=== PATIENT | female | born 1975 | race Caucasian/White ===

== ENCOUNTER 2017-01-31 21:52 | Emergency (ER) | payer OTHER ==
[2017-01-31] MEDS ORDERED: DIPH,PERTUS(ACELL)TETVAC-LF 0.5 ML VIAL IM ONE (22:09)
[2017-01-31] MEDS ORDERED: MORPHINE SULFATE 10 MG/ML SYRINGE IM STA (22:14)
--- NOTE | 2017-01-31 22:19 | ED ---
Wound/Laceration HPI - General Chief Complaint: Wound/Laceration Stated Complaint: hand lac with chainsaw Time Seen by Provider: 01/31/17 22:05 Source: patient, RN notes reviewed Mode of arrival: ambulatory Limitations: no limitations - History of Present Illness Initial Comments: This is a 42-year-old female presenting to the emergency Department chief complaint of right hand laceration. Patient reports she was holding wood for her friends to cut with a chain saw and they cut through the wood and cut into the palm of her hand. Patient reports she has a laceration over the palm of her thumb as well as extending in the middle finger. Patient states she does have some range of motion of the middle finger. She does have limited full extension and flexion of the right thumb. Patient reports she is right-handed. She does not know the status of her tetanus vaccination.Patient reports that she was drinking when this occured. - Related Data Home Medications Medication Instructions Recorded Confirmed Cyanocobalamin [Vitamin B-12] 500 mcg PO DAILY 01/31/17 01/31/17 Magnesium Oxide [Mag-Ox] 250 mg PO DAILY 01/31/17 01/31/17 Potassium 99 mg PO DAILY 01/31/17 01/31/17 Previous Rx's Medication Instructions Recorded Acetaminophen-Codeine 300-30mg 1 tab PO Q6H PRN #15 tablet 02/01/17 [Tylenol #3] Cephalexin [Keflex] 500 mg PO Q6HR #40 cap 02/01/17 Allergies Allergy/AdvReac Type Severity Reaction Status Date / Time ibuprofen [From Motrin] Allergy Unknown Verified 01/31/17 22:03 Childhood Penicillins Allergy Unknown Verified 01/31/17 22:30 Childhood Review of Systems ROS Statement: Those systems with pertinent positive or pertinent negative responses have been documented in the HPI. ROS Other: All systems not noted in ROS Statement are negative. Past Medical History Additional Past Medical History / Comment(s): blood clotting disordere History of Any Multi-Drug Resistant Organisms: None Reported Past Surgical History: No Surgical Hx Reported Past Psychological History: Anxiety, Depression Smoking Status: Current every day smoker Past Alcohol Use History: Occasional Past Drug Use History: None Reported General Exam - General Exam Comments Initial Comments: Intoxicated 42 year old female. Limitations: no limitations General appearance: alert, appears intoxicated Head exam: Present: atraumatic, normocephalic, normal inspection Eye exam: Present: normal appearance, PERRL, EOMI. Absent: scleral icterus, conjunctival injection, periorbital swelling ENT exam: Present: normal exam, mucous membranes moist Neck exam: Present: normal inspection. Absent: tenderness, meningismus, lymphadenopathy Respiratory exam: Present: normal lung sounds bilaterally. Absent: respiratory distress, wheezes, rales, rhonchi, stridor Cardiovascular Exam: Present: regular rate, normal rhythm, normal heart sounds. Absent: systolic murmur, diastolic murmur, rubs, gallop, clicks GI/Abdominal exam: Present: soft, normal bowel sounds. Absent: distended, tenderness, guarding, rebound, rigid Extremities exam: Present: normal inspection, full ROM, normal capillary refill. Absent: tenderness, pedal edema, joint swelling, calf tenderness Right Forearm Wrist exam: Present: normal inspection, full ROM Hand Wrist exam: Present: laceration (7 cm laceration over thenar eminence evidence of tendon involement. Patient has difficulty felxing and extending thumb. Patient reports deminished sensation over distal thumb. 7 cm lceration on middle finger, patietn has full range of mtion. Patient reports distal sensation is intact. ). Absent: normal inspection, full ROM Neuro motor exam: Present: wrist extension intact, fingers 2-5 abduction intact. Absent: thumb opposition intact, thumb IP flexion intact, thumb adduction intact Back exam: Present: normal inspection Neurological exam: Present: alert, oriented X3, CN II-XII intact Psychiatric exam: Present: normal affect, normal mood Skin exam: Present: warm, dry, intact, normal color. Absent: rash Course Vital Signs 01/31/17 02/01/17 21:58 00:04 Temperature 98.1 F 98.7 F Pulse Rate 118 H 98 Respiratory 22 18 Rate Blood Pressure 107/80 112/72 O2 Sat by Pulse 96 98 Oximetry Procedures - Laceration Laceration #1 Site: hand (right thenar eminence) Size (cm): 7 Description: irregular Depth: involves muscle layer, involves tendon Anesthetic Used: lidocaine 1% Anesthesia Technique: local infiltration Amount (mls): 10 Pre-repair: wound explored, irrigated extensively Type of Sutures: vicryl Size of Sutures: 5-0 Number of Sutures: 15 Technique: simple, interrupted Patient Tolerated Procedure: well, no complications Laceration #2 Site: hand (right middle finger) Size (cm): 7 Description: irregular Depth: simple, single layer, involves muscle layer Anesthetic Used: lidocaine 1% Anesthesia Technique: local infiltration Amount (mls): 6 Pre-repair: wound explored, irrigated extensively Type of Sutures: vicryl Size of Sutures: 5-0 Number of Sutures: 12 Technique: simple, interrupted Patient Tolerated Procedure: well, no complications Medical Decision Making - Medical Decision Making This is a 42-year-old female presenting to the emergency Department chief complaint of right hand laceration. Patient reports she was holding wood for her friends to cut with a chain saw and they cut through the wood and cut into the palm of her hand. Patient reports she has a laceration over the palm of her thumb as well as extending in the middle finger. Patient states she does have some range of motion of the middle finger. She does have limited full extension and flexion of the right thumb. Patient reports she is right-handed. She does not know the status of her tetanus vaccination.Patient reports that she was drinking when this occured. Patient hand was soaked in saline and betadine and then thourouly irrigated. Patient shows evidence of severed tendon in thenar eminence to thumb. Discussed case with Dr. Grace, he examined the patient as well. Patiet wound was anesthestized with lidocaine, and irrigated. Both lacerations were well approximated and closed with sutures as described in procedure note. Patient given Keflex starter pack, and updated tetanus. Discussed with patient that she has to follow up with orthopedic physician, and take antibiotic prescription. Patient was also given Rx for pain medication. Patient agrees to treatment plan and will comply. - Radiology Data Radiology results: report reviewed Hand xray is negative for any osseous lesion. Evidence of laceration on thenar eminence. Disposition Clinical Impression: Laceration of finger of right hand with tendon involvement Disposition: HOME SELF-CARE Condition: Good Instructions: Care For Your Stitches (ED), Finger Laceration (ED), Tendon Laceration (ED) Additional Instructions: Patient advised to keep the area covered. Monitor for any signs of infection including redness swelling and drainage. If that occurs while taking antibiotics to the emergency department. Patient advised to follow-up with orthopedic hand surgeon specialist for further evaluation and tendon repair within the next week. Call them tomorrow to schedule an appointment. Patient advised to take Motrin or Tylenol for pain. Return to the emergency department if there is any alarming signs or symptoms occur. Prescriptions: Acetaminophen-Codeine 300-30mg [Tylenol #3] 1 tab PO Q6H PRN #15 tablet PRN Reason: Pain Cephalexin [Keflex] 500 mg PO Q6HR #40 cap Referrals: None,Stated [Primary Care Provider] - 1-2 days Avery Kay DO [Doctor of Osteopathic Medicine] - 1-2 days Time of Disposition: 00:05
[2017-01-31] MEDS ORDERED: ACETAMINOPHEN TAB 500 MG TAB PO STA (22:37)
--- NOTE | 2017-01-31 22:56 | XR ---
EXAM: XR Right Hand Complete, 3 or More Views CLINICAL HISTORY: Reason: Pain; right hand laceration from chainsaw TECHNIQUE: Frontal, lateral and oblique views of the right hand. COMPARISON: No relevant prior studies available. FINDINGS: Bones/joints: No acute fracture or dislocation. Tiny subchondral cyst in the base of the fifth proximal phalanx, with thin sclerotic margin, implying a benign or indolent process, possibly on a degenerative basis. Soft tissues: Apparent soft tissue defect of the thenar eminence, overlying and adjacent to the first metacarpal head along its palmar aspect, without underlying radiopaque foreign body. IMPRESSION: Soft tissue defect involving the thenar eminence along its palmar margin. No underlying radiopaque foreign body or acute fracture seen.
[2017-02-01] MEDS ORDERED: CEPHALEXIN 500MG STARTER PACK 4 CAP BTL PO STA (00:04)
[2017-02-01 00:05] VITALS: BP 112/72; PULSE 98; RESP 18; TEMP 98.7
[2017-02-01] MEDS ORDERED: ACET/COD 300 MG/30 MG STARTER PACK 6 TAB BTL PO STA (00:06)
[2017-02-01] MEDS ORDERED: ONDANSETRON 4 MG ODT STARTER PACK 2 TAB BTL PO STA (00:10)
== END 2017-02-01 00:17 | disposition home or self-care (01) ==
LOC: EC 21:52
DX: S61.212A Laceration without foreign body of right middle finger without damage to nail, initial encounter (principal); S61.411A Laceration without foreign body of right hand, initial encounter; F17.200 Nicotine dependence, unspecified, uncomplicated; Z23 Encounter for immunization; Z79.899 Other long term (current) drug therapy; Z88.0 Allergy status to penicillin; Z88.6 Allergy status to analgesic agent; W31.2XXA Contact with powered woodworking and forming machines, initial encounter; Y92.009 Unspecified place in unspecified non-institutional (private) residence as the place of occurrence of the external cause
CPT/HCPCS: 73130; 90715; 99283; 12005; 96372; 90471; J2270; S0119